=== PATIENT | female | born 1950 | race Caucasian/White ===

== ENCOUNTER → 2021-11-21 16:51 | Outpatient (CLI) | payer MEDICARE, OTHER, SELFPAY ==
--- NOTE | 2021-11-21 16:55 | DI.MRI.S_ITS ---
PROCEDURE: MR LUMBAR SPINE WO CON INDICATIONS: Lumbar facet arthropathy TECHNIQUE: Noncontrast sagittal T1 spin echo and T2 fast echo, sagittal STIR, and T2 fast spin echo through the lumbar spine. In cases with scoliosis, additional coronal T2 fast spin echo may be performed. COMPARISON: [facility], MR, MR LUMBAR SPINE WITHOUT CONTRAST, 08/22/2017, 17:08. FINDINGS: Image quality: Excellent. Alignment and Curvature: There is normal bony alignment. Bone Marrow: Marrow is of normal overall signal. No acute vertebral body compression fractures. Spinal Cord: Conus medullaris terminates at the L1 level. Visualized cord demonstrates normal signal and size. Regional Soft Tissues: No paravertebral masses. T12-L1: No spinal canal or neural foraminal stenosis. L1-L2: No spinal canal or neural foraminal stenosis. L2-L3: No spinal canal or neural foraminal stenosis. L3-L4: No spinal canal or neural foraminal stenosis. L4-L5: Diffuse disc bulge flattens the ventral thecal sac. No mass effect upon the traversing L5 nerve roots. Mild right and moderate left neural foraminal stenosis due to facet and uncovertebral hypertrophy. Bulky bilateral facet hypertrophy with large facet effusion and subchondral cystic change on the left. L5-S1: Diffuse disc bulge with mild mass effect upon the traversing S1 nerve roots. Severe bilateral neural foraminal stenosis due to disc height loss primarily along with some posterior osteophytic ridging of the L5 endplate and foraminal components of a diffuse disc bulge. Flattening of the bilateral exiting L5 nerve roots. IMPRESSION: Lower lumbar spine degenerative changes worst at L5-S1 where there is severe bilateral neural foraminal stenosis. Dictated by: Yoel Rashid M.D. on 11/22/2021 at 14:17 Approved by: Yoel Rashid M.D. on 11/22/2021 at 14:20
--- NOTE | 2021-11-21 16:55 | DI.RAD.S_ITS ---
PROCEDURE: XR LUMBAR SPINE MIN 4V INDICATIONS: Low back pain right hip pain TECHNIQUE: 5 views of the lumbar spine acquired, including flexion and extension views. COMPARISON: [facility], MR, MR LUMBAR SPINE WO CON, 11/21/2021, 17:45. [facility], CR, XR LUMBAR SPINE 2 OR 3 VIEWS, 08/18/2021, 10:23. FINDINGS: Bones: 5 nonrib-bearing vertebrae are present. 7 mm of anterolisthesis of L4 on L5. This was not seen on MRI from 12/05, indicating dynamic instability. Mild bilateral hip arthrosis. High-grade spondylosis at L5-S1. Mild spondylosis at the other levels. Difficult to evaluate oblique views due to overlapping structures. There may be pars defects. Soft tissues: Overlying bowel gas pattern is normal. No suspicious soft tissue calcifications. Aortic calcifications. IMPRESSION: 7 mm of L4 on L5 anterolisthesis, not seen on same day MRI, indicating dynamic instability. There may be pars defects, difficult to evaluate on oblique views due to overlapping structures. Spondylosis most severe at L5-S1. Mild bilateral hip arthrosis. Dictated by: Angel Carrillo M.D. on 11/22/2021 at 10:20 Approved by: Angel Carrillo M.D. on 11/22/2021 at 10:28
== END ==
PROVIDERS: PCP Family Medicine; Referring Provider Physical Medicine & Rehabilitation; Visit Provider Physical Medicine & Rehabilitation
DX: M47.817 Spondylosis without myelopathy or radiculopathy, lumbosacral region (principal); M47.816 Spondylosis without myelopathy or radiculopathy, lumbar region; M48.062 Spinal stenosis, lumbar region with neurogenic claudication; M48.07 Spinal stenosis, lumbosacral region; M43.16 Spondylolisthesis, lumbar region; M16.0 Bilateral primary osteoarthritis of hip
CPT/HCPCS: 72110; 72148

== ENCOUNTER 2021-12-20 08:41 | Outpatient (CLI) | payer MEDICARE, OTHER, SELFPAY ==
[2021-12-20] VITALS (9 sets, daily range): BP systolic 137–184; BP diastolic 70–98; PULSE 70–76; RESP 12–21; TEMP 36.1; O2SAT 97–100
--- NOTE | 2021-12-20 08:45 | DI.RAD.S_ITS ---
PROCEDURE: PAIN L/S FACET INJ/BLK 1ST PAUL COMPARISON: None. INDICATIONS: SPONDYLOSIS FINDINGS: Needle placement is noted overlying levels L4 and L5 with contrast injection. IMPRESSION: Needle localization as above. Dictated by: Renee Rios M.D. on 12/20/2021 at 21:27 Approved by: Renee Rios M.D. on 12/20/2021 at 21:28
[2021-12-20 09:29] LABS: COVID19 -Nasal RAPID Negative (Negative)
[2021-12-20] MEDS: MIDAZOLAM 2 MG/2 ML VIAL IV (10:00)
[2021-12-20] MEDS: IOPAMIDOL 15 ML VIAL 3 ML INJ (10:16)
--- NOTE | 2021-12-20 10:20 | P.PCN_ITS ---
Date/Time/Diagnoses Date of procedure: 12/20/21 Time of procedure: 10:20 Pre-procedure diagnosis: 1. FACET ARTHROPATHY 2. AXIAL LBP 3. MULTILEVEL DDD Post-procedure diagnosis: same Procedure Notes Procedure: 1. FLUOROSCOPICALLY GUIDED CONTRAST CONTROLLED FACET JOINT INJECTIONS BILATERAL L4/5, L5/S1 Indications: Darby is referred by Dr. Steinberg for treatment of Axial LBP Physician: Kirby Stafford Total Fluoroscopy time (seconds): 12 Total sedation minutes: 17 Complications: none Procedure in detail & Post-procedure care: FINDINGS Multilevel Facet Arthropathy with Clinically significant axial LBP DESCRIPTION OF PROCEDURE Fluoroscopically guided, contrast-controlled bilateral L4/5, L5/S1 facet joint injections. Following review of allergy and review of potential side effects and complications, including, but not necessarily limited to, infection, allergic reaction, local tissue breakdown, stroke, temporary or permanent nerve injury, paralysis, and possible , the patient indicated that the patient understood and agreed to proceed. An informed consent document was signed by the patient, witnessed by a nurse, and placed in the patient's chart. Additionally, other treatment options including medications, modalities, and physical therapy were reviewed with the patient. After review of previous anaesthesic history and IV conscious sedation the patient was deemed safe to proceed with today?s procedure with IV conscious sedation as ASA class II designation. Safety time-out was performed to confirm patient ID, procedure to be performed and site of procedure. IV sedation was accomplished with a combination of 2mg of Versed was administered by the RN after DO order, titrated to patient comfort during the course of the procedure while the patient remained responsive to all verbal commands In the prone position, following sterile prep and drape of the lumbar region, the posterior aspect of the L4/5, L5/S1 facet joints were identified fluoroscopi miya. The skin was anesthetized via a 25-gauge 1.5inch needle with 1% lidocaine solution into the corresponding facet joints. At this point, a 22- gauge 3.5-inch spinal needle was atraumatically introduced and advanced under fluoroscopic guidance into the corresponding facet joints. Following negative aspiration, injections of approximately 0.2cc of Isovue 200 confirmed interarticular placement without vascular uptake. The identical procedure was then performed at the L4/5, L5/S1 facet joints on the left. Radiological data, including multiple fluoroscopic views of the lumbosacral spine, reveal a spinal needle at the L4/5, L5/S1 facet joints bilaterally. Subsequent views show flow of contrast material both superiorly and inferiorly within the joint space without vascular or intrathecal uptake. At this point, a total of 0.5cc including a mixture of 0.25cc Marcaine and 0.25cc betamethasone was injected without complication into each of the corresponding facet joints. The patient tolerated the procedure well without signs or symptoms of complications prior to transfer to the recovery area continued monitoring without incident. The patient was then transferred to the recovery area where they were observed for an appropriate period of time after the injection. The patient reported a VAS score of 7 prior to the procedure and a post- procedure VAS of 0. POST OP INSTRUCTIONS The patient was provided a Pain Log to continue to record their response to the target-specific procedure prior to follow-up visit with their referring physician. Additionally, specific post-injection care instructions and a contact number to our office were provided if concerns arise regarding possible complications associated with the procedure are suspected.
[2021-12-20] MEDS: LIDOCAINE 1% (PF) 5 ML INJ (10:25)
[2021-12-20] MEDS: BUPIVACAINE 0.5% (PF) VIAL 5 ML INJ (10:27)
[2021-12-20] MEDS: BETAMETHASONE 30 MG/5 ML MDV 12 MG INJ (10:27)
== END 2021-12-20 10:39 | disposition home or self-care (01) ==
PROVIDERS: PCP Family Medicine; Referring Provider Physical Medicine & Rehabilitation; Visit Provider Physical Medicine & Rehabilitation
DX: M47.816 Spondylosis without myelopathy or radiculopathy, lumbar region (principal); M51.36 Other intervertebral disc degeneration, lumbar region
CPT/HCPCS: 64493; 64494; 87635; 99152; J0702; J2250

== ENCOUNTER 2022-04-25 09:30 | Outpatient (CLI) | payer MEDICARE, OTHER, SELFPAY ==
[2022-04-25] VITALS (10 sets, daily range): BP systolic 104–146; BP diastolic 56–69; PULSE 69–75; RESP 14–22; TEMP 36.4; O2SAT 95–97
--- NOTE | 2022-04-25 09:31 | DI.RAD.S_ITS ---
PROCEDURE: PAIN L/S FACET INJ/BLK 1ST PAUL COMPARISON: [facility], , PAIN L/S FACET INJ/BLK 1ST PAUL, 12/20/2021, 10:05. INDICATIONS: SPONDYLOSIS FINDINGS: Fluoroscopic spot filming was performed to verify placement of spinal needles on both sides at the L4, L5, and S1 levels, as labeled on the films. Appropriate location of the needle tips was confirmed by injection of iodinated contrast. IMPRESSION: Intraprocedural examination demonstrating appropriate positions of the needles. Dictated by: Holden Gregory M.D. on 04/25/2022 at 14:53 Approved by: Holden Gregory M.D. on 04/25/2022 at 14:54
[2022-04-25] MEDS: MIDAZOLAM 2 MG/2 ML VIAL IV ×2 (10:17→10:30)
[2022-04-25] MEDS: IOPAMIDOL 15 ML VIAL 3 ML INJ (10:32)
[2022-04-25] MEDS: BUPIVACAINE 0.5% (PF) 10 ML VIAL 5 ML SUBCUT (10:33)
[2022-04-25] MEDS: LIDOCAINE 1% (PF) 5 ML INJ (10:35)
--- NOTE | 2022-04-25 10:45 | P.PCN_ITS ---
Date/Time/Diagnoses Date of procedure: 04/25/22 Time of procedure: 10:45 Pre-procedure diagnosis: 1. FACET ARTHROPATHY Post-procedure diagnosis: same Procedure Notes Procedure: 1. BILATERAL- L4, L5 and S1 DIAGNOSTIC MB BLOCKS with LA Anesthetic Indications: Darby is referred by Dr. Steinberg for treatment of Bilateral Axial LBP. Physician: Kirby Stafford Total Fluoroscopy time (seconds): 13 Total sedation minutes: 21 Complications: none Procedure in detail & Post-procedure care: DESCRIPTION OF PROCEDURE Fluoroscopically guided, contrast-controlled bilateral L4, L5 and S1 medial branch blocks with 0.5cc of 0.5% Marcaine. Following review of allergy and review of potential side effects and complications, including, but not necessarily limited to, infection, allergic reaction, local tissue breakdown, nerve injury, paralysis, stroke and possible , the patient indicated that the patient understood and agreed to proceed. An informed consent document was signed by the patient, witnessed by a nurse, and placed in the patient's chart. After review of previous anaesthesic history and IV conscious sedation the patient was deemed safe to proceed with today's procedure with IV conscious sedation as ASA class II designation. Safety time-out was performed to confirm patient ID, procedure to be performed and site of procedure. IV sedation was accomplished with a combination of 4mg of Versed was administered by the RN after DO order, titrated to patient comfort during the course of the procedure while the patient remained responsive to all verbal commands In the prone position, following sterile prep and drape of the lumbar region, the right L4, L5 and S1 anatomical location of the medial branch of the dorsal ramus was identified fluoroscopically. Subsequently an anesthetic skin wheal using 1% lidocaine solution was initiated at each of the anatomical spots. Subsequently then a 22-gauge 3.5-inch spinal needle was atraumatically introduced and advanced under fluoroscopic guidance at each of the corresponding sites at the right L4, L5 and S1 MB. After negative aspiration, 0.2cc of Isovue 200 was injected, confirming placement without vascular or intrathecal uptake. Subsequently then 0.5cc of 0.5% Marcaine solution was injected at each of the corresponding sites at the right L4, L5 and S1 medial branch locations. The identical procedure was replicated on the left. The patient tolerated the procedure well without signs or symptoms of complications prior to transfer to the recovery area continued monitoring without incident. Post-procedure, the patient was monitored initiating provocative activities to measure the amount of relief from block of the facetogenic pain. The patient reported a VAS of 7 prior to the procedure and a post-procedure VAS of 1. It has been a pleasure to assist in the diagnostic and therapeutic care of your patient. POST OP INSTRUCTIONS The patient was provided with a Pain Log to complete over the next several hours and subsequent days prior to the patient's follow up with the ordering physician. If the patient has product specialist relief to the solution applied, then they may be a candidate for medial branch rhizotomy. The patient is aware, was provided, once again, with a Pain Log and will follow up with the referring physician for review and clinical correlation
== END 2022-04-25 11:07 | disposition home or self-care (01) ==
PROVIDERS: PCP Family Medicine; Referring Provider Physical Medicine & Rehabilitation; Visit Provider Physical Medicine & Rehabilitation
DX: M47.816 Spondylosis without myelopathy or radiculopathy, lumbar region (principal); M47.817 Spondylosis without myelopathy or radiculopathy, lumbosacral region
CPT/HCPCS: 64493; 64494; 99152; J2250

== ENCOUNTER 2022-07-25 07:17 | Outpatient (CLI) | payer MEDICARE, OTHER, SELFPAY ==
[2022-07-25] VITALS (17 sets, daily range): BP systolic 81–142; BP diastolic 44–90; PULSE 69–81; RESP 12–24; TEMP 36.6; O2SAT 95–98
--- NOTE | 2022-07-25 07:19 | DI.RAD.S_ITS ---
PROCEDURE: PAIN L/S MED/LAT N RFA BILAT INDICATIONS: SPONDYLOSIS COMPARISON: [facility], CR, XR LUMBAR SPINE 2 OR 3 VIEWS, 06/17/2022, 13:44. FINDINGS: Fluoroscopic spot filming was performed to verify placement of spinal needles at the L4, 5 and S1 level(s), as labeled on the films. Appropriate location(s) of the needle tip(s) was confirmed by injection of iodinated contrast. IMPRESSION: Fluoroscopy for pain management Dictated by: Katalina Kline M.D. on 07/25/2022 at 12:00 Approved by: Katalina Kline M.D. on 07/25/2022 at 12:01
[2022-07-25] MEDS: MIDAZOLAM 2 MG/2 ML VIAL 1 MG IV ×3 (08:40→09:10)
[2022-07-25] MEDS: BUPIVACAINE 0.5% (PF) 10 ML VIAL 5 ML SUBCUT (08:48)
[2022-07-25] MEDS: LIDOCAINE 1% (PF) 5 ML INJ (08:49)
--- NOTE | 2022-07-25 09:34 | P.PCN_ITS ---
Date/Time/Diagnoses Date of procedure: 07/25/22 Time of procedure: 09:34 Pre-procedure diagnosis: 1. RECALCITRANT FACET ARTHROPATHY Post-procedure diagnosis: same Procedure Notes Procedure: 1. BILATERAL L4 AND L5 MEDIAL BRANCH RADIOFREQUENCY NEUROTOMY AND S1 DORSAL RAMUS BRANCH RADIOFREQUENCY NEUROTOMY Indications: Darby is referred by Dr. Steinberg for treatment of facet arthropathy. Physician: Kirby Stafford Total Fluoroscopy time (seconds): 23 Total sedation minutes: 47 Complications: none Procedure in detail & Post-procedure care: DESCRIPTION OF PROCEDURE Bilateral L4 and L5 medial branch radiofrequency neurotomy and bilateral S1 dorsal ramus radiofrequency neurotomy under fluoroscopy with conscious sedation. The patient is well known to this clinic having undergone previous facet injections with good but temporary relief. The patient has experienced appropriate, concordant relief with previous facet and median branch blocks but the patient's pain has been recalcitrant to further conservative measures. Therefore, based upon the patient's relief and persistent symptoms, the patient is considered an appropriate candidate for facet rhizotomy. All of the patient's questions regarding the risks versus benefits of the procedure, including, but not limited to, bleeding, infection, temporary as well as lasting nerve injury, paralysis, stroke, and , as well treatment alternatives were answered to satisfaction. After obtaining informed consent, denial of pertinent drug allergies, as well as being made aware of the potential risks of bleeding, infection, spinal cord trauma, paralysis, temporary and permanent nerve damage, seizure, stroke, and possible , the patient was brought to the fluoroscopy suite and positioned prone on the fluoroscopy table. The lumbar region was prepped with Betadine and covered with a fenestrated drape in the usual sterile fashion. Appropriate monitors applied including pulse oximeter, pulse, and blood pressure for regular monitoring throughout the procedure. After review of previous anaesthesic history and IV conscious sedation the patient was deemed safe to proceed with today's procedure with IV conscious sedation as ASA class II designation. Safety time-out was performed to confirm patient ID, procedure to be performed and site of procedure. IV sedation was accomplished with a combination of 3mg of Versed administered by the RN after DO order, titrated to patient comfort during the course of the procedure while the patient remained responsive to all verbal commands. After local infiltration using 1% lidocaine, under fluoroscopic guidance, a 10- cm RF insulated needle with a 10-mm active tip was positioned parallel to the junction of the right sacral ala and the superior articulating process where the S1 dorsal ramus resides. Needle placement was confirmed with motor stimulation of .5v on the right which produced local stimulation without radicular component. The stimulation was then increased to 2v with, once again, only local multifidus stimulation without radicular component. The needle was then removed and the identical procedure was performed along the length of the right L5 medial branch with motor stimulation at .7v on the right. The identical procedure was once again performed along the length of the right L4 medial branch with motor stimulation of .5v on the right. The medial branches were then anesthetised with 0.5% Marcaine. This was then followed by two discreet lesions performed at 80 degrees Celsius for 90 seconds each. The identical procedure was repeated on the left. The patient tolerated the procedure well without signs or symptoms of complications prior to transfer to the recovery area continued monitoring without incident. The patient was then transferred to the recovery area where they were observed for an appropriate period of time after the injection. The patient reported a VAS score of 9 prior to the procedure and a post-procedure VAS of 0. POST OP INSTRUCTIONS The patient was provided a Pain Log to continue to record the patient's response to the target-specific procedure prior to the patient's follow-up visit with the referring physician. Additionally, specific post-injection care instructions and a contact number to our office were provided if concerns arise regarding possible complications associated with the procedure are suspected.
== END 2022-07-25 10:35 | disposition home or self-care (01) ==
PROVIDERS: PCP Family Medicine; Referring Provider Physical Medicine & Rehabilitation; Visit Provider Physical Medicine & Rehabilitation
DX: M47.816 Spondylosis without myelopathy or radiculopathy, lumbar region (principal); M47.817 Spondylosis without myelopathy or radiculopathy, lumbosacral region
CPT/HCPCS: 64635; 64636; 99152; 99153; J2250

== ENCOUNTER 2022-10-19 13:30 | Outpatient (CLI) | payer MEDICARE, OTHER, SELFPAY ==
[2022-10-19] VITALS (8 sets, daily range): BP systolic 136–178; BP diastolic 64–97; PULSE 70–81; RESP 16–20; TEMP 36.1; O2SAT 96–100
--- NOTE | 2022-10-19 13:32 | DI.RAD.S_ITS ---
PROCEDURE: PAIN L INTERLAMINAR/CAUDAL INJ INDICATIONS: SPONDYLOSIS COMPARISON: None. FINDINGS: Fluoroscopic spot filming was performed to verify placement of spinal needles at the left L5-S1 interlaminar level(s), as labeled on the films. Appropriate location(s) of the needle tip(s) was confirmed by injection of iodinated contrast. IMPRESSION: Access needle tip in the left L5-S1 interlaminar space for translaminar epidural steroid injection. Dictated by: Miriam Cruz MD, PhD on 10/19/2022 at 16:10 Approved by: Miriam Cruz MD, PhD on 10/19/2022 at 16:11
[2022-10-19] MEDS: MIDAZOLAM 2 MG/2 ML VIAL IV (14:30)
[2022-10-19] MEDS: BETAMETHASONE 30 MG/5 ML MDV 6 MG INJ (14:38)
[2022-10-19] MEDS: BUPIVACAINE 0.25% (PF) VIAL 2 ML INJ (14:38)
[2022-10-19] MEDS: DEXAMETHASONE 10 MG/ML VIAL 20 MG INJ (14:39)
[2022-10-19] MEDS: IOPAMIDOL 15 ML VIAL 3 ML INJ (14:39)
--- NOTE | 2022-10-19 14:48 | PM.PROC.IR.1 ---
Date/Time/Diagnoses Date of procedure: 10/19/22 Time of procedure: 14:48 Pre-procedure diagnosis: 1. HNP WITH RADICULAR FEATURES, 2. MULTILEVEL CENTRAL STENOSIS, Post-procedure diagnosis: same Procedure Notes Procedure: 1. FLUOROSCOPICALLY GUIDED CONTRAST CONTROLLED INTERLAMINAR EPIDURAL STEROID INJECTION - L5/S1 Indications: Darby is referred by Dr. Steinberg for treatment of Bilateral Foraminal Stenosis L>R LE symptoms. Physician: Kirby Stafford Total Fluoroscopy time (seconds): 10 Total sedation minutes: 13 Complications: none Procedure in detail & Post-procedure care: FINDINGS Multilevel Central Spinal Stenosis with Nerve Root Compression DESCRIPTION OF PROCEDURE Fluoroscopically guided, contrast-controlled L5/S1 translaminar epidural steroid injection. Following review of allergy and review of potential side effects and complications, including, but not necessarily limited to, infection, allergic reaction, local tissue breakdown, temporary as well as permanent nerve injury, paralysis, stroke and possible , the patient indicated that the patient understood and agreed to proceed. An informed consent document was signed by the patient, witnessed by a nurse, and placed in the patient's chart. Additionally, other treatment options including modalities, medications, and physical therapy were reviewed with the patient. After review of previous anaesthesic history and IV conscious sedation the patient was deemed safe to proceed with today?s procedure with IV conscious sedation as ASA class II designation. Safety time-out was performed to confirm patient ID, procedure to be performed and site of procedure. IV sedation was accomplished with a combination of 2mg of Versed administered by the RN after DO order, titrated to patient comfort during the course of the procedure while the patient remained responsive to all verbal commands. In the prone position, following sterile prep and drape of the lumbar region, the L5/S1 translaminar space was identified fluoroscopically. The skin was anesthetized via a 25-gauge, 1.5-inch needle with 1% lidocaine solution. At this point, a 22-gauge short bevel spinal needle was atraumatically introduced and advanced under fluoroscopic guidance into the region of the L5/S1 translaminar space. Depth was confirmed on lateral view. Radiological data, including multiple fluoroscopic views of the lumbar spine, reveal a spinal needle at the L5/S1 translaminar space. Lateral views then show placement of the needle in the epidural space. Subsequent views show contrast material flowing superiorly and inferiorly in the epidural space. No vascular or intrathecal uptake is observed. At this point, using loss of resistance technique with saline and air, the epidural space was entered. This was confirmed following negative aspiration with injection of approximately 1.5cc of Isovue 200, showing excellent epidural flow without vascular or intrathecal uptake. At this point, 1 cc of 1% lidocaine solution combined with 3cc or 20mg of dexamethasone and 6mg of betamethasone was injected without incident. The patent tolerated the procedure without signs of symptoms of complications prior to transfer to the recovery area for further monitoring. The patient was then transferred to the recovery area where they were observed for an appropriate period of time after the injection. The patient reported a VAS score of 6 prior to the procedure and a post-procedure VAS of 0. POST OP INSTRUCTIONS The patient was provided a Pain Log to continue to record their response to the target-specific procedure prior to follow-up visit with their referring physician. Additionally, specific post-injection care instructions and a contact number to our office were provided if concerns arise regarding possible complications associated with the procedure are suspected.
== END 2022-10-19 15:03 | disposition home or self-care (01) ==
LOC: RAD 13:31
PROVIDERS: PCP Family Medicine; Referring Provider Physical Medicine & Rehabilitation; Visit Provider Physical Medicine & Rehabilitation
DX: M51.17 Intervertebral disc disorders with radiculopathy, lumbosacral region (principal); M48.07 Spinal stenosis, lumbosacral region
CPT/HCPCS: 62323; 99152; J0702; J1100; J2250; J3490

== ENCOUNTER → 2024-05-12 08:45 | Outpatient (CLI) | payer MEDICARE, OTHER, SELFPAY ==
--- NOTE | 2024-05-12 08:47 | DI.RAD.S_ITS ---
PROCEDURE: XR LUMBAR SPINE MIN 4V INDICATIONS: BACK PAIN TECHNIQUE: 5 views of the lumbar spine were acquired, including bilateral oblique views. COMPARISON: None. FINDINGS: Bones: 5 nonrib-bearing vertebrae are present. Grade 1 anterolisthesis of L4 on L5. No vertebral body compression fractures. No suspicious bony lesions. Moderate disc height loss at L4-5 and L5-S1. Mild disc height loss at remaining levels. Facet arthrosis of L4 through S1. Soft tissues: Overlying bowel gas pattern is normal. No suspicious soft tissue calcifications. Oblique images: No pars defects. IMPRESSION: Mild to moderate, multilevel degenerative disc disease and lower lumbar facet arthrosis. Grade 1 anterolisthesis of L4 on L5. Consider flexion and extension views to evaluate for dynamic instability. Dictated by: Buck Dean M.D. on 05/12/2024 at 9:30 Approved by: Buck Dean M.D. on 05/12/2024 at 9:34
== END ==
PROVIDERS: PCP Family Medicine; Referring Provider Physical Medicine & Rehabilitation; Visit Provider Physical Medicine & Rehabilitation
DX: M48.062 Spinal stenosis, lumbar region with neurogenic claudication (principal); M47.816 Spondylosis without myelopathy or radiculopathy, lumbar region; M47.817 Spondylosis without myelopathy or radiculopathy, lumbosacral region; M51.369 Other intervertebral disc degeneration, lumbar region without mention of lumbar back pain or lower extremity pain; M51.379 Other intervertebral disc degeneration, lumbosacral region without mention of lumbar back pain or lower extremity pain; M43.16 Spondylolisthesis, lumbar region; M1A.0790 Idiopathic chronic gout, unspecified ankle and foot, without tophus (tophi); Z96.612 Presence of left artificial shoulder joint
CPT/HCPCS: 72110; 99214

== ENCOUNTER → 2025-04-06 09:03 | Outpatient (CLI) | payer MEDICARE, OTHER, SELFPAY ==
--- NOTE | 2025-04-06 09:07 | DI.RAD.S_ITS ---
PROCEDURE: XR CERVICAL SPINE 4V OR 5V INDICATIONS: NECK PAIN TECHNIQUE: 5 views of the cervical spine acquired. COMPARISON: None. FINDINGS: Bones: No fractures or dislocations to the T1 level. Severe cervical spondylosis. Significant disc height loss at C4-C5 through C6-C7. Oblique images demonstrate bilateral bony foraminal stenosis at C3-C4 through C6-C7, left greater than right. Soft tissues: No prevertebral soft tissue swelling. IMPRESSION: Multilevel bilateral bony foraminal narrowing. Dictated by: Castillo Beaver M.D. on 04/06/2025 at 9:40 Approved by: Castillo Beaver M.D. on 04/06/2025 at 9:41
== END ==
PROVIDERS: PCP Family Medicine; Referring Provider Physical Medicine & Rehabilitation; Visit Provider Physical Medicine & Rehabilitation
DX: M47.812 Spondylosis without myelopathy or radiculopathy, cervical region (principal); M48.02 Spinal stenosis, cervical region; M54.2 Cervicalgia
CPT/HCPCS: 72050